=== PATIENT | female | born 1995 | race African-American/Black ===

== ENCOUNTER 2017-10-15 21:55 | Emergency (ER) | payer BC ==
[~2017-10-15] VITALS: Ht 157.5 cm; Wt 94.8 kg
[~2017-10-15 21:55] MED LIST: NEXIUM40 MG PO; ROBAXIN500 MG
--- OUTSIDE RECORDS SUMMARY | 2017-10-15 21:57 | XMS REPORT ---
Author Author [facility] Address Unknown Phone Unavailable Care Team Providers Care Trawl Net Maker Name Role Phone JIM LAWLER Unavailable Unavailable Problems This patient has no known problems. Allergies, Adverse Reactions, Alerts This patient has no known allergies or adverse reactions. Medications This patient has no known medications. Results Test Description Test Time Test Comments Text Results Atomic Results Result Comments CHEST 2 VIEWS [place] [address] Patient Name: CLINTON SÁNCHEZ MR #: [id number] : 1995 Age/Sex: 21/F Req # : [id number] Adm Physician: Ordered by: JIM LAWLER MD Report # : [id number] Location: ER Room/Bed: Procedure: [id number] DX/CHEST 2 VIEWS Exam Date: Exam Time: REPORT STATUS: Signed EXAM: CHEST 2 VIEWS, PA and lateral DATE: 2016 1:10 AM Time stamp on exam: 0126 hours INDICATION: Chronic cough COMPARISON: None FINDINGS: LINES/TUBES: None LUNGS: No consolidations or edema. PLEURA: No effusions or pneumothorax. HEART AND MEDIASTINUM: Normal size and contour. BONES AND SOFT TISSUES: No acute findings. Bilateral nipple jewelry. IMPRESSION: No acute thoracic abnormality. Signed by: Dr. Brandy Voss M.D. on 03/19/2017 1: 48 AM Dictated By: BRANDY VOSS MD 7 Transcribed By: FLORENCIA on 03/19/17147 COPY TO: JIM LAWLER MD
[2017-10-15 23:07] LABS: BILIRUBIN,URINE NEGATIVE (NEGATIVE); CLARITY,URINE CLEAR (CLEAR); COLOR,URINE YELLOW (YELLOW); KETONES,URINE NEGATIVE (NEGATIVE); LEUKOCYTE ESTERASE ,URINE TRACE (NEGATIVE); NITRITE,URINE NEGATIVE (NEGATIVE); PREGNANCY TEST, URINE NEGATIVE (NEGATIVE); PROTEIN,URINE DIPSTICK NEGATIVE (NEGATIVE); URINE UROBILINOGEN 0.2 mg/dL (0.2 - 1)
[2017-10-15 23:19] LABS: RBC,URINE 0-5 /HPF (0-5); WBC,URINE (MAN) 0-5 /HPF (0-5)
[2017-10-15 23:20] LABS: BACTERIA,URINE FEW /HPF; EPITHELIAL CELLS,URINE FEW /LPF
[2017-10-15 23:41] VITALS: BP 5/2
== END 2017-10-16 | disposition home or self-care (01) ==
LOC: ER 21:55
DX: N30.90 Cystitis, unspecified without hematuria (principal); N36.8 Other specified disorders of urethra; K21.9 Gastro-esophageal reflux disease without esophagitis
CPT/HCPCS: 81001; 81025; 99282